=== PATIENT | male | born 1970 | race Two or more races ===

== ENCOUNTER 2017-12-02 09:26 | Emergency (ER) | payer OTHER ==
[~2017-12-02] VITALS: Ht 162.6 cm; Wt 93.0 kg
[~2017-12-02 09:26] MED LIST: HYZAAR 100/25 T1 TAB PO; KEPPRA500 MG PO
[2017-12-02] MEDS ORDERED: METFORMIN HCL1000 MG (09:48)
[2017-12-02] MEDS ORDERED: HYZAAR 50-12.51 EACH (09:49)
[2017-12-02] MEDS ORDERED: TRILEPTAL600 MG (09:49)
== END 2017-12-02 14:26 | disposition home or self-care (01) ==
LOC: ER 09:26
DX: G40.89 Other seizures (principal)

== ENCOUNTER 2022-03-27 14:01 | Emergency (ER) | payer OTHER ==
[~2022-03-27] VITALS: Ht 165.1 cm; Wt 90.7 kg
[~2022-03-27 14:01] MED LIST changes: +HYZAAR 50-12.51 EACH; +METFORMIN HCL1000 MG; +TRILEPTAL600 MG
== END 2022-03-27 20:15 | disposition home or self-care (01) ==
LOC: ER 14:01
DX: G40.909 Epilepsy, unspecified, not intractable, without status epilepticus (principal)